=== PATIENT | female | born 1970 | race Caucasian/White ===

== ENCOUNTER 2024-01-29 21:06 | Inpatient (IN) | payer BC, OTHER ==
[2024-01-29 21:18] VITALS: BMI 20.5
[2024-01-29] MEDS ORDERED: FAMOTIDINE 20 MG/50 ML IVPB 20 MG/50 ML MG IVPB ONE (22:44)
[2024-01-29 22:45] LABS: VENOUS BASE EXCESS 1.8 mmol/L (-2-2); VENOUS O2 SATURATION 35.1 % (70-80); VENOUS PCO2 46.6 mmHg (38-52); VENOUS PH 7.386 (7.310-7.410)
[2024-01-29 22:47] LABS: BASO % 0.4 % (0-2.0); EOS % 0.1 % (0-4.5); HEMATOCRIT 35.4 % (32.4-45.2); HEMOGLOBIN 11.6 GM/dL (10.7-15.3); LYMPH % 7.9 % (8-40); MCHC 32.9 g/dl (32.0-36.0); MEAN CELL VOLUME 94.2 fl (80-96); MEAN PLT VOLUME 9.7 fl (7.5-11.1); MONO % 4.7 % (3.8-10.2); NEUT % 86.9 % (42.8-82.8); PLATELET COUNT 245 10^3/uL (134-434); RBC 3.76 M/mm3 (3.60-5.2); RDW 12.5 % (11.6-15.6); WHITE BLOOD COUNT 13.5 K/mm3 (4.0-10.0)
[2024-01-29] MEDS: FAMOTIDINE 20 MG/50 ML IVPB 20 MG/50 ML MG IVPB ONE (22:47)
[2024-01-29 23:57] LABS: EPI CELLS 1 /uL (0-25.1); HYALINE CASTS 0 /uL (0-3.1); PH,URINE 6.5 (5.0-8.0); URINE APPEARANCE CLOUDY; URINE BACTERIA >9,000 /uL (0-1359); URINE BILIRUBIN NEGATIVE (NEGATIVE); URINE COLOR YELLOW; URINE GLUCOSE (UA) 3+ (NEGATIVE); URINE KETONE 2+ (NEGATIVE); URINE LEUK ESTERASE 3+ (NEGATIVE); URINE NITRITE NEGATIVE (NEGATIVE); URINE PROTEIN 1+ (NEGATIVE); URINE UROBILINOGEN 0.2 mg/dL (0.2-1.0); URINE WBC 2159 /uL (0-25.8)
[2024-01-30 00:04] LABS: POTASSIUM 4.2 mmol/L (3.5-5.1)
[2024-01-30 00:06] LABS: ALBUMIN 3.7 g/dl (3.4-5.0); CALCIUM 9.7 mg/dL (8.5-10.1); MAGNESIUM 2.1 mg/dL (1.8-2.4)
[2024-01-30 00:10] LABS: CREATININE 0.9 mg/dL (0.55-1.3)
[2024-01-30 00:11] LABS: BILIRUBIN,TOTAL 0.5 mg/dL (0.2-1); TOT PROT 7.7 g/dl (6.4-8.2)
[2024-01-30] MEDS ORDERED: CEFTRIAXONE 1 GM/50 ML BAG ONE ×2 (00:48→10:17)
[2024-01-30] MEDS: SODIUM CHLORIDE 0.9% 500 ML INFUS.BAG IV ONE (00:54)
[2024-01-30] MEDS: CEFTRIAXONE 1 GM in DEXTROSE 5%-WATER - 100 ML IVPB ONE (00:54)
[2024-01-30 01:00] LABS: HIV INTERPRETATION NEGATIVE (NEGATIVE)
[2024-01-30 01:37] LABS: URINE RBC 37.7 /uL (0-23.9)
[2024-01-30 01:38] LABS: YEAST NON SEEN (NEGATIVE)
[2024-01-30] MEDS: ACETAMINOPHEN 325 MG TABLET (FP) PO ONE (02:44)
[2024-01-30] MEDS ORDERED: ONDANSETRON 4 MG/2 ML VIAL ONE (03:38)
[2024-01-30] MEDS: ONDANSETRON 4 MG/2 ML VIAL IVPUSH ONE (03:42)
[2024-01-30] MEDS ORDERED: ALBUTEROL SO4 HFA INHALER IH PRN (06:32)
[2024-01-30] MEDS ORDERED: PATIENT'S OWN MEDICATION (NON-FORMULARY) (Ipratropium Bromide [Atrovent Hfa] 12.9 GM Hfa.A IH PRN (06:36)
[2024-01-30 07:22] LABS: HEMATOCRIT 31.5 % (32.4-45.2); HEMOGLOBIN 10.6 GM/dL (10.7-15.3); MCH 31.8 pg (25.7-33.7); MCHC 33.7 g/dl (32.0-36.0); MEAN CELL VOLUME 94.4 fl (80-96); PLATELET COUNT 224 10^3/uL (134-434); RBC 3.34 M/mm3 (3.60-5.2); RDW 12.4 % (11.6-15.6); WHITE BLOOD COUNT 10.7 K/mm3 (4.0-10.0)
[2024-01-30 07:36] LABS: POTASSIUM 4.5 mmol/L (3.5-5.1)
[2024-01-30 07:43] LABS: ALBUMIN 3.2 g/dl (3.4-5.0); BLOOD UREA NITROGEN 15.8 mg/dL (7-18); CALCIUM 9.1 mg/dL (8.5-10.1)
[2024-01-30 07:46] LABS: CREATININE 0.8 mg/dL (0.55-1.3)
[2024-01-30 07:47] LABS: PHOSPHOROUS 2.9 mg/dL (2.5-4.9)
[2024-01-30 07:48] LABS: BILIRUBIN,TOTAL 0.5 mg/dL (0.2-1); TOT PROT 6.4 g/dl (6.4-8.2)
[2024-01-30] MEDS ORDERED: FLUTICASONE PROP 0.05% 16 GM NASAL SPRAY NS SCH (10:00)
[2024-01-30] MEDS ORDERED: busPIRone HCL 5 MG TABLET PO SCH (10:00)
[2024-01-30] MEDS: INSULIN ASPART SLIDING SCALE (NOVOLOG) 1 VIAL SQ SCH (10:15)
[2024-01-30] MEDS ORDERED: ENOXAPARIN NA (PORCINE) 40 MG/0.4 ML DISP.SYRIN SQ ONE (10:16)
[2024-01-30] MEDS ORDERED: busPIRone HCL 5 MG TABLET ONE (10:16)
[2024-01-30] MEDS ORDERED: POLYETHYLENE GLYCOL (HEALTHYLAX) 3350 17 GM PACKET ONE (10:16)
[2024-01-30] MEDS: busPIRone HCL 5 MG TABLET PO SCH (10:30)
[2024-01-30] MEDS: POLYETHYLENE GLYCOL (HEALTHYLAX) 3350 17 GM PACKET PO SCH (10:30)
[2024-01-30] MEDS: CEFTRIAXONE 1 GM in DEXTROSE 5%-WATER - 50 ML IVPB SCH (10:30)
[2024-01-30] MEDS: SODIUM CHLORIDE 1,000 ML IV SCH (12:32)
[2024-01-30] MEDS: ENOXAPARIN NA (PORCINE) 40 MG/0.4 ML DISP.SYRIN SQ SCH (12:32)
[2024-01-30] MEDS: KETOROLAC TROMETHAMINE 10 MG TABLET PO PRN (13:25)
[2024-01-30] MEDS: LISINOPRIL 10 MG TABLET PO SCH (21:26)
[2024-01-30 22:52] VITALS: RESP 18
[2024-01-31 08:58] LABS: HEMATOCRIT 33.1 % (32.4-45.2); HEMOGLOBIN 11.1 GM/dL (10.7-15.3); MCH 31.5 pg (25.7-33.7); MCHC 33.6 g/dl (32.0-36.0); MEAN CELL VOLUME 93.8 fl (80-96); MEAN PLT VOLUME 9.6 fl (7.5-11.1); PLATELET COUNT 242 10^3/uL (134-434); RBC 3.53 M/mm3 (3.60-5.2); RDW 12.7 % (11.6-15.6)
[2024-01-31 09:23] LABS: POTASSIUM 3.8 mmol/L (3.5-5.1)
[2024-01-31 09:25] LABS: BLOOD UREA NITROGEN 13.8 mg/dL (7-18); CALCIUM 9.7 mg/dL (8.5-10.1)
[2024-01-31 09:29] LABS: CREATININE 0.8 mg/dL (0.55-1.3)
[2024-01-31] MEDS: ACETAMINOPHEN 1000 MG/100 ML BAG IVPB PRN (10:00)
[2024-01-31] MEDS: CEFTRIAXONE 1 G/50 ML PREMIX 50 ML IVPB SCH (10:04)
[2024-01-31] MEDS: ACETAMINOPHEN 500 MG TABLET (FP) PO SCH (13:03)
[2024-01-31] MEDS: INSULIN (LEVEMIR) 100 UNITS/ML UNITS SQ SCH (23:17)
[2024-02-01] MEDS: ONDANSETRON 4 MG/2 ML VIAL IVPUSH PRN (05:12)
[2024-02-01] MEDS ORDERED: BISACODYL 5 MG TABLET.DR (FP) PO PRN (05:40)
[2024-02-01] MEDS: DOCUSATE SODIUM 100 MG CAPSULE (FP) PO SCH (09:54)
[2024-02-01 10:09] LABS: HEMATOCRIT 34.3 % (32.4-45.2); HEMOGLOBIN 11.7 GM/dL (10.7-15.3); MCH 31.6 pg (25.7-33.7); MCHC 34.2 g/dl (32.0-36.0); MEAN CELL VOLUME 92.4 fl (80-96); MEAN PLT VOLUME 9.6 fl (7.5-11.1); PLATELET COUNT 286 10^3/uL (134-434); RBC 3.71 M/mm3 (3.60-5.2); RDW 12.3 % (11.6-15.6); WHITE BLOOD COUNT 9.8 K/mm3 (4.0-10.0)
[2024-02-01 10:31] LABS: POTASSIUM 4.3 mmol/L (3.5-5.1)
[2024-02-01 10:33] LABS: BLOOD UREA NITROGEN 17.4 mg/dL (7-18)
[2024-02-01 10:37] LABS: CREATININE 0.9 mg/dL (0.55-1.3)
[2024-02-01 11:29] VITALS: BP 135/83; PULSE 82; TEMP 99.1
[2024-02-01] MEDS ORDERED: SENNOSIDES 8.8 MG/5 ML SYRUP PO SCH (22:00)
== END 2024-02-01 17:55 | disposition home or self-care (01) | DRG 463 ==
LOC: JER 21:06 → JERBED 01-30 03:28 → J6S 01-30 10:40 → OBSVTOIN 01-31 10:36
PROVIDERS: ADMIT Internal Medicine; ATTEND Internal Medicine
DX: N10 Acute pyelonephritis (principal); E11.65 Type 2 diabetes mellitus with hyperglycemia; I10 Essential (primary) hypertension; J45.909 Unspecified asthma, uncomplicated; Z79.84 Long term (current) use of oral hypoglycemic drugs; F41.9 Anxiety disorder, unspecified; K59.00 Constipation, unspecified; N28.89 Other specified disorders of kidney and ureter
CPT/HCPCS: 36415; 74177-TC; 80048; 80053; 81003; 82803; 82962; 83036; 83690; 83735; 84100; 84703; 85025; 85027; 86803; 87086; 87186; 87389; 93005; 93010; 99285-25; G0378; J0131